=== PATIENT | female | born 1970 | race Caucasian/White ===

== ENCOUNTER 2016-07-10 20:53 | Emergency (ER) | payer OTHER ==
[~2016-07-10] VITALS: Ht 167.6 cm; Wt 141.1 kg
[2016-07-10 21:01] VITALS: BP 167/118
[2016-07-10] MEDS ORDERED: IBUPROFEN 600 MG TABLET. PO ONE (21:30)
[2016-07-10] MEDS ORDERED: HYDROcodone/APAP 5/325MG 1 TAB TABLET PO ONE (21:30)
[2016-07-10] MEDS ORDERED: HYDR-2678 PO (21:40)
[2016-07-10] MEDS ORDERED: IBUP600T16 PO (21:40)
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
== END 2016-07-10 22:00 | disposition home or self-care (01) ==
LOC: ER 20:53
DX: S63.501A Unspecified sprain of right wrist, initial encounter (principal); S60.211A Contusion of right wrist, initial encounter; M25.561 Pain in right knee; I10 Essential (primary) hypertension; V28.4XXA Motorcycle driver injured in noncollision transport accident in traffic accident, initial encounter; Y93.55 Activity, bike riding; Y99.8 Other external cause status; Y92.89 Other specified places as the place of occurrence of the external cause
CPT/HCPCS: 29125; 73110; 73130; 99284-25

== ENCOUNTER → 2016-07-17 | Outpatient (CLI) | payer OTHER ==
[2016-07-10 21:01] VITALS: BP 167/118
[~2016-07-17] MED LIST: HYDR-2678 PO; IBUP600T16 PO
--- NOTE | 2016-07-17 16:16 | RAD ---
Examination: 3 views of the right wrist History: History of right wrist pain, fall Comparison: 07/10/2016 Findings: The alignment of the carpal bones are grossly appears unremarkable. There is subtle sliver of bone density identified just dorsal to the triquetrum likely a subtle avulsion fracture of the triquetrum. Impression: Subtle dorsal avulsion fracture of the triquetrum, best seen on the lateral view of the wrist. This was not clearly evident on the prior exam.
== END | disposition home or self-care (01) ==
LOC: DXRADRC 14:20
PROVIDERS: ATTEND Family Medicine
DX: M25.531 Pain in right wrist (principal); S62.111A Displaced fracture of triquetrum [cuneiform] bone, right wrist, initial encounter for closed fracture; X58.XXXA Exposure to other specified factors, initial encounter; Y93.89 Activity, other specified; Y92.89 Other specified places as the place of occurrence of the external cause; Y99.9 Unspecified external cause status
CPT/HCPCS: 73110

== ENCOUNTER → 2017-09-14 | Outpatient (CLI) | payer OTHER ==
--- NOTE | 2017-09-15 07:50 | RAD ---
INDICATION: Injury, pain. TECHNIQUE: 3 views of the right foot are submitted for review. No comparison is available. FINDINGS: There is no definite acute fracture or dislocation. There is a small ossific fragment that appears well corticated at the base of the fifth metatarsal which could be sequela of remote fracture, there is no adjacent soft tissue swelling. Correlate with symptoms. This could also be a fragmented spur or small accessory ossicle. There are mild degenerative changes at the first metatarsal-phalangeal joint. There is a small plantar calcaneal spur. There is a spur at the insertion of the Achilles tendon. IMPRESSION: 1. No evidence of an acute fracture or dislocation. 2. Well-corticated fragment at the base of the fifth metatarsal, could represent old fracture, fragmented spur, or accessory ossicle. Electronically signed by: Yoseph Burt MD (09/15/2017 7:47 AM) [facility]
== END | disposition home or self-care (01) ==
LOC: RAD 17:19
PROVIDERS: ATTEND Physician Assistant Medical
DX: M77.31 Calcaneal spur, right foot (principal); I10 Essential (primary) hypertension
CPT/HCPCS: 73630